=== PATIENT | female | born 1990 | race Caucasian/White ===

== ENCOUNTER 2019-08-10 11:36 | Emergency (ER) | payer MEDICAID ==
[~2019-08-10] VITALS: Ht 165.1 cm; Wt 78.0 kg
[~2019-08-10 11:36] MED LIST: PRENATAL VITAMINS
[2019-08-10] MEDS ORDERED: SODIUM CHLORIDE 0.9% 1,000 ML IV ONE (17:54)
[2019-08-10 18:27] LABS: BASOPHILS % 0.3 % (0.0-2.0); EOSINOPHILS % 0.8 % (0.0-5.0); HEMATOCRIT. 39.9 % (36.0-48.0); HEMOGLOBIN. 13.5 g/dL (12.0-16.0); LYMPHOCYTES % 28.9 % (20.0-50.0); MEAN CORPUSCULAR HEMOGLOBIN 31.2 pg (28.0-32.0); MEAN CORPUSCULAR VOLUME 91.9 fL (81.0-99.0); MONOCYTES % 5.2 % (2.0-8.0); NEUTROPHILS % 64.8 % (40.0-76.0); PLATELET 231 x1000/uL (130-400); RED BLOOD CELL COUNT 4.34 mill/uL (4.2-5.4); RED CELL DISTRIBUTION WIDTH 13.5 % (11.6-14.6)
[2019-08-10 18:28] LABS: CHLORIDE 106 mEq/L (98-107)
[2019-08-10 18:29] LABS: CLARITY URINE CLOUDY (CLEAR); COLOR URINE YELLOW (YELLOW); KETONES URINE NEGATIVE (NEGATIVE); LEUKOCYTE ESTERASE URINE 1+ (NEGATIVE); NITRITE URINE NEGATIVE (NEGATIVE); OCCULT BLOOD URINE 3+ (NEGATIVE); PROTEIN URINE NEGATIVE (NEGATIVE); SPECIFIC GRAVITY URINE 1.027 (1.005-1.030)
[2019-08-10 18:44] LABS: *AMPHETAMINES SCREEN URINE NEGATIVE (NEGATIVE); *BARBITURATES SCREEN URINE NEGATIVE (NEGATIVE)
[2019-08-10 18:45] LABS: *BENZODIAZEPINES SCREEN URINE NEGATIVE (NEGATIVE); *COCAINE SCREEN URINE NEGATIVE (NEGATIVE); CANNABINOID URINE SCREEN NEGATIVE (NEGATIVE); PHENCYCLIDINE URINE SCREEN NEGATIVE (NEGATIVE)
[2019-08-10 18:46] LABS: METHADONE URINE SCREEN NEGATIVE (NEGATIVE); OPIATES URINE SCREEN NEGATIVE (NEGATIVE)
[2019-08-10 18:52] LABS: B-HCG QUANTITATIVE 1526 mIU/mL (<3)
[2019-08-10] MEDS ORDERED: POTASSIUM CHLORIDE 20MEQ TABLET SR PO ONE (19:30)
[2019-08-10 19:53] VITALS: BP 108/70
[2019-08-14] MEDS ORDERED: IBUP-2029 MT (21:11)
== END 2019-08-10 20:37 | disposition home or self-care (01) ==
LOC: ER 11:36
DX: O26.891 Other specified pregnancy related conditions, first trimester (principal); O03.9 Complete or unspecified spontaneous abortion without complication; Z3A.12 12 weeks gestation of pregnancy
CPT/HCPCS: 36415; 76801; 76817; 80053; 80305; 81003; 81025; 84702; 85025; 86850; 86900; 86901; 99284; J7030

== ENCOUNTER 2019-08-14 13:21 | Day surgery (SDC) | payer MEDICAID ==
[~2019-08-14] VITALS: Ht 162.6 cm; Wt 78.0 kg
[2019-08-14] MEDS ORDERED: SODIUM CHLORIDE 0.9% 1,000 ML IV ONE ×2 (14:02→21:10)
[2019-08-14 15:00] LABS: BASOPHILS % 0.1 % (0.0-2.0); EOSINOPHILS % 0.9 % (0.0-5.0); HEMATOCRIT. 39.2 % (36.0-48.0); HEMOGLOBIN. 13.2 g/dL (12.0-16.0); LYMPHOCYTES % 21.4 % (20.0-50.0); MEAN CORPUSCULAR HEMOGLOBIN 30.9 pg (28.0-32.0); MEAN CORPUSCULAR VOLUME 91.8 fL (81.0-99.0); MONOCYTES % 4.6 % (2.0-8.0); PLATELET 219 x1000/uL (130-400); RED BLOOD CELL COUNT 4.27 mill/uL (4.2-5.4); RED CELL DISTRIBUTION WIDTH 13.6 % (11.6-14.6)
[2019-08-14 15:03] LABS: CHLORIDE 105 mEq/L (98-107)
[2019-08-14 15:15] LABS: B-HCG QUANTITATIVE 653 mIU/mL (<3)
[2019-08-14] MEDS ORDERED: MORPHINE SULFATE 2 MG/ML CPJ (NOT FOR IM USE) IV NR (17:15)
[2019-08-14] MEDS ORDERED: MORPHINE SULFATE 2 MG/ML CPJ (NOT FOR IM USE) IV ONE (18:00)
[2019-08-14] MEDS ORDERED: LACTATED RINGERS 1,000 ML IV SCH (20:07)
[2019-08-14 20:36] LABS: CLARITY URINE CLEAR (CLEAR); COLOR URINE YELLOW (YELLOW); KETONES URINE TRACE (NEGATIVE); LEUKOCYTE ESTERASE URINE NEGATIVE (NEGATIVE); NITRITE URINE NEGATIVE (NEGATIVE); OCCULT BLOOD URINE 3+ (NEGATIVE); PROTEIN URINE NEGATIVE (NEGATIVE); SPECIFIC GRAVITY URINE 1.014 (1.005-1.030); UROBILINOGEN URINE 0.2 E.U./dL (0.2-1.0)
[2019-08-14] MEDS ORDERED: MIDAZOLAM HCL 2 MG/2 ML VIAL ONE (20:49)
[2019-08-14] MEDS ORDERED: FENTANYL CITRATE/PF 50MCG/ML 2ML VIAL ONE (20:49)
[2019-08-14] MEDS ORDERED: PROPOFOL 200MG/20ML VIAL IV ONE (20:49)
[2019-08-14] MEDS ORDERED: LIDOCAINE HCL/PF 1% 10 MG/ML 5ML VIAL ONE (20:49)
[2019-08-14] MEDS ORDERED: SUCCINYLCHOLINE CHLORIDE 200MG/10ML IV ONE (20:49)
[2019-08-14] MEDS ORDERED: GLYCOPYRROLATE 0.2 MG/ML 2ML VIAL ONE (20:49)
[2019-08-14] MEDS ORDERED: METOCLOPRAMIDE HCL 10MG/2ML VIAL ONE (20:49)
[2019-08-14] MEDS ORDERED: ONDANSETRON HCL 4MG/2ML INJ ONE (20:49)
[2019-08-14] MEDS ORDERED: DEXT 5%/0.45% NACL KCL 20MEQ/L 1,000 ML IV SCH (21:06)
[2019-08-14] MEDS ORDERED: IBUP-2029 MT (21:11)
[2019-08-14] MEDS ORDERED: ONDANSETRON HCL 4MG/2ML INJ IV PRN ×2 (21:15)
[2019-08-14] MEDS ORDERED: HYDROMORPHONE HCL/PF 2MG/ML CPJ IV PRN (21:15)
[2019-08-14] MEDS ORDERED: MEPERIDINE HCL/PF 25MG/ML CPJ IV PRN ×2 (21:15)
[2019-08-14] MEDS ORDERED: MORPHINE SULFATE 2 MG/ML CPJ (NOT FOR IM USE) IV PRN (21:15)
[2019-08-14] MEDS ORDERED: KETOROLAC 60MG/2ML VIAL IM NR (21:15)
[2019-08-14 21:56] VITALS: BP 106/63
== END 2019-08-14 22:40 | disposition home or self-care (01) ==
LOC: ER 13:21 → OR 21:11
PROVIDERS: ATTEND Specialist
DX: O03.4 Incomplete spontaneous abortion without complication (principal); N93.9 Abnormal uterine and vaginal bleeding, unspecified; Z79.899 Other long term (current) drug therapy; Z3A.12 12 weeks gestation of pregnancy
CPT/HCPCS: 36415; 59812; 76801; 80053; 81003; 84702; 85025; 86762; 86850; 86900; 86901; 88300; 88305; J0330; J1885; J2250; J2270; J2405; J2704; J2765; J3010; J3490; J7030

== ENCOUNTER 2019-12-28 11:28 | Emergency (ER) | payer MEDICAID ==
[~2019-12-28] VITALS: Ht 165.1 cm; Wt 80.0 kg
[~2019-12-28 11:28] MED LIST changes: +IBUP-2029 MT; -PRENATAL VITAMINS
[2019-12-28] MEDS ORDERED: PREDNISONE 20MG TABLET PO ONE (14:15)
[2019-12-28] MEDS ORDERED: CEFTRIAXONE SODIUM 1 G/VIAL IM ONE (14:15)
[2019-12-28] MEDS ORDERED: DIPHENHYDRAMINE 50MG CAPSULE PO ONE (14:15)
[2019-12-28] MEDS ORDERED: LIDOCAINE HCL 1% 20ML VIAL (Pyxis) INJ INFIL ONE (14:15)
[2019-12-28 14:54] VITALS: BP 133/75
== END 2019-12-28 14:54 | disposition home or self-care (01) ==
LOC: ER 11:28
DX: S40.862A Insect bite (nonvenomous) of left upper arm, initial encounter (principal); W57.XXXA Bitten or stung by nonvenomous insect and other nonvenomous arthropods, initial encounter; S00.262A Insect bite (nonvenomous) of left eyelid and periocular area, initial encounter; Y93.9 Activity, unspecified
CPT/HCPCS: 96372; 99283; J0696; J3490; J7512; Q0163

== ENCOUNTER 2020-02-25 00:20 | Emergency (ER) | payer BC, MEDICAID ==
[~2020-02-25] VITALS: Ht 165.1 cm; Wt 81.0 kg
[2020-02-25] MEDS ORDERED: DIPHENHYDRAMINE 25MG CAPSULE PO ONE (00:45)
[2020-02-25] MEDS ORDERED: PREDNISONE 20MG TABLET PO ONE (00:45)
[2020-02-25 00:58] VITALS: BP 131/79
== END 2020-02-25 00:59 | disposition home or self-care (01) ==
LOC: ER 00:20
DX: S40.862A Insect bite (nonvenomous) of left upper arm, initial encounter (principal); T78.40XA Allergy, unspecified, initial encounter; W57.XXXA Bitten or stung by nonvenomous insect and other nonvenomous arthropods, initial encounter; Y93.9 Activity, unspecified; Y92.9 Unspecified place or not applicable
CPT/HCPCS: 99283; J7512; Q0163

== ENCOUNTER 2021-10-17 17:21 | Emergency (ER) | payer BC, MEDICAID ==
[~2021-10-17] VITALS: Ht 165.1 cm; Wt 70.0 kg
[2021-10-17] MEDS ORDERED: MAGNESIUM/ALUMINUM HYDROXIDE/SIMETHICONE 30ML UDC PO STA (22:43)
[2021-10-17 23:23] LABS: CLARITY URINE CLEAR (CLEAR); COLOR URINE YELLOW (YELLOW); KETONES URINE NEGATIVE (NEGATIVE); LEUKOCYTE ESTERASE URINE 2+ (NEGATIVE); NITRITE URINE NEGATIVE (NEGATIVE); OCCULT BLOOD URINE 2+ (NEGATIVE); PH URINE 5.5 (4.5-8.0); PROTEIN URINE NEGATIVE (NEGATIVE); SPECIFIC GRAVITY URINE 1.024 (1.005-1.030); UROBILINOGEN URINE 0.2 E.U./dL (0.2-1.0)
[2021-10-17 23:30] LABS: BASOPHILS % 0.3 % (0.0-2.0); EOSINOPHILS % 1.2 % (0.0-5.0); HEMATOCRIT. 41.1 % (36.0-48.0); HEMOGLOBIN. 14.2 g/dL (12.0-16.0); LYMPHOCYTES % 35.6 % (20.0-50.0); MEAN CORPUSCULAR VOLUME 89.7 fL (81.0-99.0); MONOCYTES % 6.8 % (2.0-8.0); NEUTROPHILS % 56.1 % (40.0-76.0); PLATELET 236 x1000/uL (130-400); RED BLOOD CELL COUNT 4.59 mill/uL (4.2-5.4); RED CELL DISTRIBUTION WIDTH 13.4 % (11.6-14.6)
[2021-10-17 23:39] LABS: CHLORIDE 109 mEq/L (98-107)
[2021-10-18 00:14] LABS: HCG SCREEN NEGATIVE
[2021-10-18] MEDS ORDERED: CEPH500T MT (00:22)
[2021-10-18 00:34] VITALS: BP 128/78
== END 2021-10-18 00:36 | disposition home or self-care (01) ==
LOC: ER 17:21
DX: R10.33 Periumbilical pain (principal); N30.90 Cystitis, unspecified without hematuria
CPT/HCPCS: 36415; 74018; 80053; 81003; 81025; 84703; 85025; 99284

== ENCOUNTER 2022-01-27 17:27 | Emergency (ER) | payer BC ==
[~2022-01-27] VITALS: Ht 167.6 cm; Wt 91.0 kg
[~2022-01-27 17:27] MED LIST changes: +CEPH500T MT
[2022-01-27] MEDS ORDERED: ONDANSETRON 4MG ODT PO ONE (21:15)
[2022-01-27] MEDS ORDERED: HYDROCODONE/ACETAMINOPHEN 5/325MG TABLET PO ONE (21:15)
[2022-01-27 21:29] LABS: BASOPHILS % 0.3 % (0.0-2.0); EOSINOPHILS % 3.1 % (0.0-5.0); HEMATOCRIT. 45.6 % (36.0-48.0); HEMOGLOBIN. 15.2 g/dL (12.0-16.0); MEAN CORPUSCULAR HEMOGLOBIN 30.3 pg (28.0-32.0); MEAN CORPUSCULAR VOLUME 91.2 fL (81.0-99.0); MONOCYTES % 5.2 % (2.0-8.0); NEUTROPHILS % 57.4 % (40.0-76.0); PLATELET 266 x1000/uL (130-400)
[2022-01-27 21:31] LABS: CHLORIDE 101 mEq/L (98-107); HCG SCREEN NEGATIVE
[2022-01-27] MEDS ORDERED: HYDR-4001 MT (22:51)
[2022-01-27] MEDS ORDERED: AMOX1TAB16 MT (22:51)
[2022-01-27 23:01] VITALS: BP 125/78
== END 2022-01-27 23:01 | disposition home or self-care (01) ==
LOC: ER 17:27
DX: J32.2 Chronic ethmoidal sinusitis (principal); J32.3 Chronic sphenoidal sinusitis; R51.9 Headache, unspecified
CPT/HCPCS: 36415; 70450; 80048; 81025; 84703; 85025; 99284; Q0162

== ENCOUNTER 2022-04-22 12:35 | Emergency (ER) | payer BC ==
[~2022-04-22] VITALS: Ht 165.1 cm; Wt 90.0 kg
[~2022-04-22 12:35] MED LIST changes: +AMOX1TAB16 MT; +HYDR-4001 MT
[2022-04-22 12:50] VITALS: BP 126/87
[2022-04-22] MEDS ORDERED: IBUPROFEN 600MG TABLET PO STA (17:28)
[2022-04-22] MEDS ORDERED: AMOX-494 PO (17:40)
[2022-04-22] MEDS ORDERED: CLAR10 PO (17:40)
[2022-04-22] MEDS ORDERED: CIPHCO EACH EAR (17:40)
[2022-04-22] MEDS ORDERED: NAPR-681 PO (17:40)
== END 2022-04-22 18:00 | disposition home or self-care (01) ==
LOC: ER 12:35
DX: H60.92 Unspecified otitis externa, left ear (principal); H66.91 Otitis media, unspecified, right ear
CPT/HCPCS: 81025; 99283

== ENCOUNTER 2023-07-22 18:31 | Emergency (ER) | payer BC, MEDICAID ==
[~2023-07-22] VITALS: Ht 165.1 cm; Wt 92.5 kg
[~2023-07-22 18:31] MED LIST changes: +AMOX-494 PO; +CIPHCO EACH EAR; +CLAR10 PO; +NAPR-681 PO
[2023-07-22 19:17] VITALS: O2SAT 99
[2023-07-22 20:02] LABS: CLARITY URINE TURBID (CLEAR); COLOR URINE YELLOW (YELLOW); GLUCOSE URINE NEGATIVE (NEGATIVE); KETONES URINE NEGATIVE (NEGATIVE); LEUKOCYTE ESTERASE URINE NEGATIVE (NEGATIVE); NITRITE URINE NEGATIVE (NEGATIVE); OCCULT BLOOD URINE 1+ (NEGATIVE); PH URINE 5.5 (4.5-8.0); PROTEIN URINE NEGATIVE (NEGATIVE); SPECIFIC GRAVITY URINE 1.025 (1.005-1.030)
[2023-07-22 20:22] LABS: BACTERIA URINE NONE SEEN; SQUAMOUS EPITHELIAL CELL URINE 1+ /lpf (RARE/1+); WBC URINE 0-2 /hpf (0-2)
[2023-07-22 21:11] LABS: BASOPHILS % 0.2 % (0.0-2.0); EOSINOPHILS % 2.1 % (0.0-5.0); HEMATOCRIT. 42.1 % (36.0-48.0); HEMOGLOBIN. 13.6 g/dL (12.0-16.0); LYMPHOCYTES % 36.1 % (20.0-50.0); MEAN CORPUSCULAR HEMOGLOBIN 30.3 pg (28.0-32.0); MEAN CORPUSCULAR HGB CONC 32.4 g/dL (31.0-37.0); MEAN CORPUSCULAR VOLUME 93.5 fL (81.0-99.0); MEAN PLATELET VOLUME 8.3 fl (7.4-10.4); MONOCYTES % 10.1 % (2.0-8.0); NEUTROPHILS % 51.5 % (40.0-76.0); PLATELET 221 x1000/uL (130-400); RED BLOOD CELL COUNT 4.51 mill/uL (4.2-5.4); RED CELL DISTRIBUTION WIDTH 13.2 % (11.6-14.6); WHITE BLOOD COUNT 8.4 x1000/uL (4.5-11.0)
[2023-07-22 21:19] LABS: ALANINE AMINOTRANSFERASE 30 IU/L (10-49); ALBUMIN 4.3 g/dL (3.2-4.8); ASPARTATE AMINOTRANSFERASE 21 IU/L (<34); BILIRUBIN TOTAL 0.4 mg/dL (0.1-1.0); CALCIUM 8.9 mg/dL (8.7-10.4); CARBON DIOXIDE 25 mEq/L (21-32); CHLORIDE 106 mEq/L (98-107); CREATININE 0.6 mg/dL (0.6-1.0); GLUCOSE 94 mg/dL (70-105); POTASSIUM 3.7 mEq/L (3.5-5.1); PROTEIN TOTAL 7.8 g/dL (6.0-8.3); SODIUM 139 mEq/L (136-145); UREA NITROGEN BLOOD 12 mg/dL (9-23)
[2023-07-22 22:10] LABS: HCG SCREEN NEGATIVE
[2023-07-22] MEDS ORDERED: ONDA4TAB50 MT (22:20)
[2023-07-22] MEDS ORDERED: FAMO20TA8 PO (22:20)
[2023-07-22 22:28] VITALS: BP 121/87; PULSE 85; RESP 18; TEMP 98.7
== END 2023-07-22 22:29 | disposition home or self-care (01) ==
LOC: ER 18:31
DX: R10.9 Unspecified abdominal pain (principal)
CPT/HCPCS: 36415; 80053; 81003; 81025; 84703; 85025; 99283

== ENCOUNTER 2023-07-28 19:19 | Emergency (ER) | payer MEDICAID ==
[~2023-07-28] VITALS: Ht 165.1 cm; Wt 92.0 kg
[~2023-07-28 19:19] MED LIST changes: +FAMO20TA8 PO; +ONDA4TAB50 MT
[2023-07-28 19:28] VITALS: BP 121/76; PULSE 69; RESP 18; TEMP 98.2; O2SAT 99
[2023-07-28] MEDS ORDERED: KETOROLAC 60MG/2ML VIAL IM ONE (19:45)
[2023-07-28] MEDS ORDERED: ONDANSETRON 4MG ODT PO ONE (19:45)
[2023-07-28] MEDS ORDERED: ACETAMINOPHEN 325MG TABLET PO ONE (20:00)
[2023-07-28] MEDS ORDERED: CYCLOBENZAPRINE 10MG TABLET PO ONE (20:00)
[2023-07-28 21:15] LABS: BASOPHILS % 0.2 % (0.0-2.0); HEMATOCRIT. 41.5 % (36.0-48.0); HEMOGLOBIN. 13.8 g/dL (12.0-16.0); LYMPHOCYTES % 41.6 % (20.0-50.0); MEAN CORPUSCULAR HEMOGLOBIN 30.7 pg (28.0-32.0); MEAN CORPUSCULAR HGB CONC 33.2 g/dL (31.0-37.0); MEAN CORPUSCULAR VOLUME 92.5 fL (81.0-99.0); MONOCYTES % 6.7 % (2.0-8.0); NEUTROPHILS % 49.5 % (40.0-76.0); PLATELET 287 x1000/uL (130-400); RED BLOOD CELL COUNT 4.49 mill/uL (4.2-5.4); RED CELL DISTRIBUTION WIDTH 12.9 % (11.6-14.6); WHITE BLOOD COUNT 10.4 x1000/uL (4.5-11.0)
[2023-07-28 21:33] LABS: ALANINE AMINOTRANSFERASE 47 IU/L (10-49); ALBUMIN 4.4 g/dL (3.2-4.8); ASPARTATE AMINOTRANSFERASE 23 IU/L (<34); BILIRUBIN TOTAL 0.6 mg/dL (0.1-1.0); CALCIUM 8.9 mg/dL (8.7-10.4); CARBON DIOXIDE 27 mEq/L (21-32); CHLORIDE 105 mEq/L (98-107); CREATININE 0.6 mg/dL (0.6-1.0); GLUCOSE 95 mg/dL (70-105); POTASSIUM 3.7 mEq/L (3.5-5.1); PROTEIN TOTAL 7.9 g/dL (6.0-8.3); SODIUM 139 mEq/L (136-145); UREA NITROGEN BLOOD 16 mg/dL (9-23)
[2023-07-28] MEDS ORDERED: LIDO700A15 TP (21:54)
[2023-07-28] MEDS ORDERED: TOPUD MT (21:54)
[2023-07-28] MEDS ORDERED: IBUP-2028 MT (21:54)
[2023-07-28 22:21] LABS: TROPONIN I HIGH SENSITIVITY < 4 ng/L (3.0-34)
== END 2023-07-28 22:20 | disposition home or self-care (01) ==
LOC: ER 19:19
DX: S20.219A Contusion of unspecified front wall of thorax, initial encounter (principal); M54.50 Low back pain, unspecified; V49.9XXA Car occupant (driver) (passenger) injured in unspecified traffic accident, initial encounter; Y93.89 Activity, other specified; Y92.89 Other specified places as the place of occurrence of the external cause; Y99.8 Other external cause status
CPT/HCPCS: 99284; 71045; 80053; 81025; 85025; 84484; 36415; 96372; J1885

== ENCOUNTER 2023-08-19 16:22 | Emergency (ER) | payer MEDICAID ==
[~2023-08-19] VITALS: Ht 165.1 cm; Wt 93.0 kg
[~2023-08-19 16:22] MED LIST changes: +IBUP-2028 MT; +LIDO700A15 TP; +TOPUD MT
[2023-08-19 16:39] VITALS: O2SAT 99
[2023-08-19] MEDS ORDERED: DEXAMETHASONE 10 MG/ML VIAL PO ONE (17:30)
[2023-08-19] MEDS ORDERED: KETOROLAC 60MG/2ML VIAL IM ONE (17:30)
[2023-08-19 20:05] VITALS: BP 139/85; PULSE 83; RESP 18; TEMP 98.2
== END 2023-08-19 20:36 | disposition home or self-care (01) ==
LOC: ER 16:22
DX: J03.90 Acute tonsillitis, unspecified (principal); Z20.822 Contact with and (suspected) exposure to COVID-19
CPT/HCPCS: 81025; 87430; 87070; 87804 ×2; 96372; 99283; 87426; J1100; J1885; Z7610 ×2

== ENCOUNTER 2024-08-05 09:41 | Emergency (ER) | payer MEDICAID ==
[~2024-08-05] VITALS: Ht 165.1 cm; Wt 90.7 kg
[2024-08-05 09:43] VITALS: BP 125/80; PULSE 69; RESP 16; TEMP 98.3; O2SAT 100
[2024-08-05 10:49] LABS: BASOPHILS % 0.2 % (0.0-2.0); EOSINOPHILS % 0.6 % (0.0-5.0); HEMATOCRIT. 39.3 % (36.0-48.0); HEMOGLOBIN. 13.1 g/dL (12.0-16.0); LYMPHOCYTES % 34.5 % (20.0-50.0); MEAN CORPUSCULAR HEMOGLOBIN 31.2 pg (28.0-32.0); MEAN CORPUSCULAR HGB CONC 33.3 g/dL (31.0-37.0); MEAN CORPUSCULAR VOLUME 93.7 fL (81.0-99.0); MONOCYTES % 5.3 % (2.0-8.0); NEUTROPHILS % 59.4 % (40.0-76.0); PLATELET 253 x1000/uL (130-400); WHITE BLOOD COUNT 9.1 x1000/uL (4.5-11.0)
[2024-08-05 10:58] LABS: CHLORIDE 103 mEq/L (98-107); POTASSIUM 3.7 mEq/L (3.5-5.1); SODIUM 137 mEq/L (136-145)
[2024-08-05 10:59] LABS: CARBON DIOXIDE 27 mEq/L (21-32); HCG SCREEN NEGATIVE
[2024-08-05 11:00] LABS: CALCIUM 9.4 mg/dL (8.7-10.4)
[2024-08-05 11:04] LABS: CREATININE 0.7 mg/dL (0.6-1.0); GLUCOSE 104 mg/dL (70-105)
[2024-08-05 11:05] LABS: UREA NITROGEN BLOOD 13 mg/dL (9-23)
[2024-08-05 12:15] LABS: CLARITY URINE CLEAR (CLEAR); COLOR URINE YELLOW (YELLOW); GLUCOSE URINE NEGATIVE (NEGATIVE); KETONES URINE NEGATIVE (NEGATIVE); LEUKOCYTE ESTERASE URINE NEGATIVE (NEGATIVE); NITRITE URINE NEGATIVE (NEGATIVE); OCCULT BLOOD URINE TRACE (NEGATIVE); PH URINE 5.5 (4.5-8.0); PROTEIN URINE NEGATIVE (NEGATIVE); SPECIFIC GRAVITY URINE 1.015 (1.005-1.030); UROBILINOGEN URINE 0.2 E.U./dL (0.2-1.0)
[2024-08-05 12:26] LABS: BACTERIA URINE FEW; RBC URINE 0-2 /hpf (0-2); SQUAMOUS EPITHELIAL CELL URINE 2+ /lpf (RARE/1+); WBC URINE 0-2 /hpf (0-2); YEAST URINE NONE SEEN
[2024-08-05] MEDS ORDERED: IBUP-2029 MT (13:28)
[2024-08-05] MEDS ORDERED: LIDO700A15 TP (13:28)
== END 2024-08-05 14:11 | disposition home or self-care (01) ==
LOC: ER 09:41
DX: M54.9 Dorsalgia, unspecified (principal); Z79.899 Other long term (current) drug therapy; Z98.890 Other specified postprocedural states
CPT/HCPCS: 36415; 74176; 80048; 81003; 84703; 85025; 99284